=== PATIENT | male | born 2000 | race African-American/Black ===

== ENCOUNTER 2022-06-26 02:38 | Emergency (ER) | payer OTHER, SELFPAY ==
--- NOTE | 2022-06-26 02:45 | ED.GENADULT ---
HPI - General Adult General Time Seen by Provider: 02:45 Date Seen: 06/26/22 Chief complaint: Ear/Nose/Throat Problem Stated complaint: Pain in L ear Time Seen by Provider: 06/26/22 02:44 Source: patient and RN notes reviewed Mode of arrival: ambulatory Limitations: no limitations History of Present Illness HPI narrative: Patient presents with a couple weeks of bilateral ear pain and decreased hearing, worse on the left. Says he was seen in clinic in the clean his ears out but things got worse after that. No sinus congestion or runny nose. Using wax removal drops with minimal improvement. Has not taken anything for pain. Related Data Home Medications Medication Instructions Recorded Confirmed No Known Home Medications 06/23/22 06/23/22 Allergies Allergy/AdvReac Type Severity Reaction Status Date / Time No Known Drug Allergies Allergy Verified 06/23/22 13:54 Review of Systems Status of ROS: Reports: 10 or more systems reviewed and unremarkable except as noted in History and below PFSH PFSH Social History Smoking Status: Never smoker Exam Narrative: Exam Narrative: General: well nourished , NAD Head: Atraumatic and normocephalic ENT: External ears and external nose are normal, bilateral cerumen impaction Eyes: Conjunctiva clear, pupils are equal reactive, external ocular motions are intact Neck: Full spontaneous range of motion of the neck Lungs: No respiratory distress Musculoskeletal: No tenderness or deformity Neurologic: No gross focal neurologic deficits Skin: No rashes Psych: Mood and affect are appropriate Course Course Hospital Course: Patient seen examined, prior records reviewed. Patient presents to get a with your pain, decreased hearing. Bilateral tympanic membranes are obscured by wax. Ears will be irrigated and reexamined. Reevaluation(s) Reevaluation #1: Delay in care due to multiple critical patients in the department. After irrigation, still copious wax in the left ear. This was partly removed with a curette but still lots of wax and concerned that this is abutting the tympanic membrane. Will refer to ENT for further evaluation and treatment. Time: 06:12 Medical Decision Making Medical Records Medical records reviewed: Yes I reviewed the patient's medical records Lab Data Lab results reviewed: Yes I reviewed the patient's lab results Discharge Plan Discharge Clinical Impression: Cerumen impaction Patient Disposition: Home, Self-Care Condition: Stable Instructions: Carbamide Peroxide (Into the ear) Additional Instructions: Do not use Q-tips Call Dr. Dubose, ENT in the morning to schedule an appointment ([phone] for [place] or number listed below for [place]) Discharge Diet: Regular Prescriptions: No Action No Known Home Medications Follow Up/Referrals: Darci Dubose MD [Staff Physician] - Stand Alone Forms: [employer] Info Instructions
[2022-06-26 02:50] VITALS: BP 118/74; PULSE 78; RESP 18; TEMP 36.7; O2SAT 99; BMI 20.3
[2022-06-26 06:39] VITALS: BP 110/70; PULSE 74; RESP 18; TEMP 36.7; O2SAT 99
[2022-06-26 06:40] VITALS: BP 110/70; PULSE 74; RESP 18; TEMP 36.7
== END 2022-06-26 06:40 | disposition home or self-care (01) ==
PROVIDERS: Emergency Provider Family Medicine
DX: H61.23 Impacted cerumen, bilateral (principal)
CPT/HCPCS: 69209; 99283